=== PATIENT | male | born 2000 | race Caucasian/White ===

== ENCOUNTER 2018-07-18 20:50 | Emergency (ER) | payer OTHER ==
[~2018-07-18] VITALS: Ht 182.9 cm; Wt 113.4 kg
[~2018-07-18 20:50] MED LIST: MOBIC15 M1 PO; PROAIR HFA8.5 GM INH; SYMBICORT 16010.2 GM INH
[2018-07-18 20:56] VITALS: BP 130/73
[2018-07-18] MEDS ORDERED: CALCIUM-MAGNES1 EAC3 PO (21:49)
--- NOTE | 2018-07-18 22:46 | ED GENERAL ADULT ---
History of Present Illness General Chief Complaint: General Adult Stated Complaint: LT FINGER INFECTED? Source: patient Exam Limitations: no limitations Allergies Coded Allergies: NO KNOWN ALLERGIES (05/07/16) Triage Note: PT FROM HOME C/C LAC TO PTS LEFT 4TH DIGIT FINGER. 2 DAYS PRIOR CUT HIS FINGER ON A KNIFE AND TRIED TO PATCH IT UP WITH A BANDAID HIMSELF. PT STATES TETANUS WITHIN THE LAST 10 YEARS. PT WOULD LIKE FINGER TO BE LOOKED AT D/T MRSA IN THE PAST. Triage Nurses Notes Reviewed? yes HPI: 18-year-old man with past medical history of MRSA skin infection seen for evaluation of a laceration to his left fourth digit. He was reportedly slicing bread with a new knife at his job 2 days ago when his finger slipped resulting in a 1.5 cm laceration to the distal left finger. He immediately controlled the bleeding with pressure and applied a bandage. The wound was seen to be draining clear/yellow material the second day. He went to the gym the day after when he noticed that his finger was again bleeding after performing some aggressive activity. Given his history of MRSA skin infections patient's grandmother insisted patient comes to the ED for evaluation. Presently patient feels well and reports that his finger does have some discomfort but otherwise denies any fever or chills. (Saurabh HOWE,Chucky) Vital Signs & Intake/Output Vital Signs & Intake/Output Vital Signs Date Time Temp Pulse Resp B/P B/P Pulse O2 O2 Flow FiO2 Mean Ox Delivery Rate 07/18 2315 Room Air 07/18 2056 98.5 67 18 130/73 96 Room Air ED Intake and Output 07/19 0000 07/18 1200 Intake Total Output Total Balance Patient 113.398 kg Weight Weight Reported by Patient Measurement Method Reconcile Medications Albuterol Sulfate (Proair Hfa) 8.5 GM HFA.AER.AD 2 PUF INH Q4-6 PRN PRN BREATHING PROBLEMS (Reported) Budesonide/Formoterol Fumarate (Symbicort 160-4.5 Mcg Inhaler) 10.2 GM HFA.AER.AD 2 PUF INH BID BREATHING PROBLEMS (Reported) Calcium Carb/Mag Oxide/Zinc Ox (Hwudaoy-Lzxsfjwnl-Qbdt Caplet) (Unknown Strength ) TABLET (Unknown Dose) PO DAILY SUPPLEMENT (Reported) Doxycycline Hyclate 100 MG CAPSULE 1 CAP PO BID INFECTION (Paulina HOWE,Jarad Kaba) Past History Travel History Traveled to [place] past 21 day No Medical History Any Pertinent Medical History? see below for history Neurological: NONE EENT: NONE Cardiovascular: NONE Respiratory: asthma Gastrointestinal: NONE Hepatic: NONE Renal: NONE Musculoskeletal: NONE Psychiatric: NONE Endocrine: NONE Blood Disorders: NONE Cancer(s): NONE VARYING EXCEPTIONALITIES TEACHER/Reproductive: NONE History of MRSA: Yes Surgical History Surgical History: non-contributory Psychosocial History What is your primary language Cambodian Tobacco Use: Never used ETOH Use: occasional use Illicit Drug Use: denies illicit drug use Family History Hx Contributory? No (Chucky Wiley MD) Review of Systems Review of Systems Constitutional: Reports: see HPI. (Chucky Wiley MD) Physical Exam Physical Exam General Appearance: well developed/nourished, no apparent distress, alert, awake , comfortable Comments: General - well developed, obese young man in no acute distress HEENT - NCAT, PERRL, EOMI, anicteric sclera Neck- Supple, no JVD/HJR, no bruits, trachea midline, thyroid normal Cardio - S1, S2 w/o murmurs/gallops/rubs; regular rate and rhythm Resp - Clear to auscultation bilaterally GI - Soft, nontender, nondistended, bowel sounds present Neuro - Awake and alert, CN II - XII grossly intact Extremities - No edema, pulses intact Left fourth digit-1.5 cm well healed incision to distal phalanx without any associated drainage, mild swelling/erythema/warmth to distal digit Core Measures ACS in differential dx? No CVA/TIA Diagnosis: No Sepsis Present: No Sepsis Focused Exam Completed? No (Chucky Wiley MD) Progress Differential Diagnoses I considered the following diagnoses in my evaluation of the patient: Retained foreign body, cellulitis, MRSA, laceration Initial ED EKG: none Comments: Patient with injury to his left fourth digit due to a bread knife 2 days ago. The wound apparently drained clear/yellow drainage. Vitals remain within normal limits physical examination demonstrates a well-healing 1.5 cm laceration to the distal left fourth digit without any obvious drainage, surrounding erythema, or purulence. Patient reports having a tetanus shot within the past 10 years. Patient is being prescribed a 5 day course of doxycycline and was advised about the adverse reactions to this medication. He was instructed to report to the ED should his symptoms worsen, bleeding return, or he develop signs of worsening infection such as fever or chills. (Chucky Wiley MD) Plan of Care: Current Medications Sig/W[place] Start time Last Medication Dose Stop Time Status Admin Lidocaine 5 ML ONCE ONE 07/18 2300 CAN (Lidocaine 1%) 07/18 2301 Laboratory Tests 07/18/182252: Lactic Acid Cancelled, CBC w Diff Cancelled, WBC Cancelled, RBC Cancelled, Hgb Cancelled, Hct Cancelled, MCV Cancelled, MCH Cancelled, MCHC Cancelled, RDW Cancelled, Plt Count Cancelled, MPV Cancelled Microbiology 07/18 2253 EXTREMITIE: Culture & Sensitivity - CAN Cancelled: Cancelled via OE: Error 07/18 2253 EXTREMITIE: Gram Stain - CAN Cancelled: Cancelled via OE: Error (Paulina HOWE,Jarad Kaba) Departure Departure Disposition: HOME OR SELF CARE Condition: Stable Clinical Impression Primary Impression: Laceration Referrals: Miki HOWE,Wayne Bruno (PCP/Family) Additional Instructions: Keep the area clean and dry. Avoid reinjuring the area and vigorous activity while healing. Take your antibiotic as directed, be sure to finish this medication. Return to the ED should he develop signs of infection such as fever or chills or should your symptoms worsen. Departure Forms: Customer Survey General Discharge Information Prescriptions: Current Visit Scripts Doxycycline Hyclate 1 CAP PO BID #10 CAP (Chucky Wiley MD) Resident Co-Sign Statement Statement: ED Attending supervision documentation- [] I saw and evaluated the patient. I have also reviewed all the pertinent lab results and diagnostic results. I agree with the findings and the plan of care as documented in the Resident's documentation. [x] I have reviewed the ED Record and agree with the Resident's documentation. [] Additions or exceptions (if any) to the Resident's note and plan are summarized below: [] (Paulina HOWE,Jarad Kaba) Critical Care Note Critical Care Note Critical Care Time: non-applicable (Chucky Wiley MD)
[2018-07-18] MEDS ORDERED: DOXYCYCLINE HY100 M2 PO (23:05)
== END 2018-07-18 23:15 ==
LOC: ERH 20:50
DX: S61.215A Laceration without foreign body of left ring finger without damage to nail, initial encounter (principal); W26.0XXA Contact with knife, initial encounter; Y92.89 Other specified places as the place of occurrence of the external cause; Y93.G1 Activity, food preparation and clean up
CPT/HCPCS: 87070